=== PATIENT | female | born 1990 | race Hispanic/Latino ===

== ENCOUNTER 2022-01-22 08:04 | Emergency (ER) | payer SELFPAY | END 2022-01-22 08:55 | disposition home or self-care (01) | LOC: ERS 08:04 | DX: G56.01 Carpal tunnel syndrome, right upper limb (principal); R20.2 Paresthesia of skin | CPT/HCPCS: 99283 ==

== ENCOUNTER 2023-03-02 16:57 | Inpatient (IN) | payer SELFPAY ==
[~2023-03-02 16:57] MED LIST: Iopamidol-370 76% 500 ML MDV (1 ML CHARGE) ONE
[2023-03-02] MEDS ORDERED: Morphine 4 MG/ML VIAL ONE ×3 (17:58→20:16)
[2023-03-02 18:04] LABS: #Basophils 0.1 thou/uL (0.0-0.2); #Eosinphils 0.1 thou/uL (0.0-0.7); #Monocytes 0.8 thou/uL (0.11-0.59); #Neutrophils 5.9 thou/uL (1.40-6.50); %Basophils 0.8 % (0.0-1.0); %Lymphocytes 25.7 % (21.0-51.0); %Monocytes 8.4 % (0.0-10.0); %Neutrophils 63.9 % (42.0-75.0); Hemoglobin 12.8 g/dL (12.0-16.0); Mean Corpuscular HGB CONC 32.8 g/dL (32.0-36.0); Mean Corpuscular Hemoglobin 28.1 pg (27.0-31.0); Mean Corpuscular Volume 85.7 fl (78.0-98.0); Mean Platelet Volume 10.7 fL (7.4-10.4); Platelet Count 318 10x3/uL (130-400); RBC Distribution Width 12.2 % (11.5-14.5); Red Blood Cell (RBC) Count 4.55 mill/uL (4.20-5.40); White Blood Cell (WBC) Count 9.3 10x3/uL (4.8-10.8)
[2023-03-02 18:12] LABS: BHCG - Serum Negative (NEGATIVE); Pregs Control Background? CLEAR/WHITE (CLR/WHITE); Pregs Control Bar Appear? YES (CONTROL BAR)
[2023-03-02 18:51] LABS: ALT (SGPT) 33 U/L (8-55); AST (SGOT) 23 U/L (5-34); Alkaline Phosphatase 71 U/L (40-110); Anion Gap 12 mmol/L (10-20); BUN (Urea Nitrogen) 9 mg/dL (7.0-18.7); Bilirubin, Total 0.4 mg/dL (0.2-1.2); Carbon Dioxide 21 mmol/L (22-29); Chloride 106 mmol/L (98-107); Glucose 106 mg/dL (70-105); Potassium 3.9 mmol/L (3.5-5.1); Protein, Total 7.6 g/dL (6.0-8.3); Sodium 135 mmol/L (136-145)
[2023-03-02 19:12] LABS: Albumin 4.1 g/dL (3.5-5.0); Calc. Creatinine Clearance 0 mL/min (70-130); Estimated GFR 119; Globulin 3.5 g/dL (2.4-3.5)
[2023-03-02] MEDS ORDERED: methylPREDNISolone Sod Succ 1 GM in Sodium Chloride 0.9% 250 ML 250 ML IVPB SCH (19:45)
[2023-03-02] MEDS ORDERED: Pantoprazole 40 MG VIAL ONE (20:16)
[2023-03-02] MEDS ORDERED: Ketorolac Tromethamine 30 MG/ML VIAL ONE (20:16)
[2023-03-02] MEDS ORDERED: Acetaminophen 650 MG Suppository PR PRN (20:35)
[2023-03-02] MEDS ORDERED: Ondansetron PF 4 MG/2 ML Vial IVP PRN (20:35)
[2023-03-02] MEDS ORDERED: Ondansetron ODT 4 MG TAB PO PRN (20:35)
[2023-03-02 22:49] VITALS: BMI 42.7
[2023-03-03] MEDS: Sodium Chloride 0.9% 1,000 ML IV SCH ×2 (00:27→06:31)
[2023-03-03] MEDS: Morphine 4 MG/ML VIAL SLOW IVP PRN ×4 (00:28→17:14)
[2023-03-03 05:45] LABS: #Monocytes 0.1 thou/uL (0.11-0.59); #Neutrophils 5.7 thou/uL (1.40-6.50); %Basophils 0.3 % (0.0-1.0); %Monocytes 0.8 % (0.0-10.0); %Neutrophils 87.6 % (42.0-75.0); Hematocrit 39.5 % (36.0-47.0); Hemoglobin 12.9 g/dL (12.0-16.0); Mean Corpuscular HGB CONC 32.7 g/dL (32.0-36.0); Mean Corpuscular Hemoglobin 28.2 pg (27.0-31.0); Mean Corpuscular Volume 86.2 fl (78.0-98.0); Mean Platelet Volume 10.8 fL (7.4-10.4); Platelet Count 296 10x3/uL (130-400); RBC Distribution Width 12.2 % (11.5-14.5); Red Blood Cell (RBC) Count 4.58 mill/uL (4.20-5.40); White Blood Cell (WBC) Count 6.5 10x3/uL (4.8-10.8)
[2023-03-03 06:27] LABS: Hemoglobin A1c 5.3 % (4.0-6.0)
[2023-03-03 07:03] LABS: Anion Gap 11 mmol/L (10-20); BUN (Urea Nitrogen) 9 mg/dL (7.0-18.7); Calc. Creatinine Clearance 191 mL/min (70-130); Calcium 8.8 mg/dL (7.8-10.44); Carbon Dioxide 22 mmol/L (22-29); Chloride 104 mmol/L (98-107); Estimated GFR 119; Glucose 161 mg/dL (70-105); Potassium 4.2 mmol/L (3.5-5.1); Sodium 133 mmol/L (136-145)
[2023-03-03] MEDS: Pantoprazole 40 MG VIAL IVP SCH (09:48)
[2023-03-03] MEDS: methylPREDNISolone Sod Succ 1 GM in Sodium Chloride 0.9% 250 ML 250 ML IVPB SCH (14:03)
[2023-03-03] MEDS: Acetaminophen 325 MG TAB PO PRN ×2 (17:15→21:53)
[2023-03-04] MEDS: Acetaminophen 325 MG TAB PO PRN ×2 (07:07→18:09)
[2023-03-04] MEDS: Morphine 4 MG/ML VIAL SLOW IVP PRN ×3 (08:36→21:44)
[2023-03-04] MEDS: Pantoprazole 40 MG VIAL IVP SCH (08:37)
[2023-03-04] MEDS ORDERED: Lorazepam 2 MG/ML VIAL SLOW IVP SCH (09:45)
[2023-03-04] MEDS: methylPREDNISolone Sod Succ 1 GM in Sodium Chloride 0.9% 250 ML 250 ML IVPB SCH (12:57)
[2023-03-05] MEDS ORDERED: methylPREDNISolone Sod Succ 40 MG VIAL IVP SCH (09:00)
[2023-03-05] MEDS: methylPREDNISolone Sod Succ 1 GM in Sodium Chloride 0.9% 250 ML 250 ML IVPB SCH (09:21)
[2023-03-05] MEDS: Pantoprazole 40 MG VIAL IVP SCH (09:22)
[2023-03-05] MEDS: Acetaminophen 325 MG TAB PO PRN (09:22)
[2023-03-05] MEDS: Fioricet 325/50/40 mg Tablet PO PRN ×2 (13:13→22:04)
[2023-03-05] MEDS: Morphine 4 MG/ML VIAL SLOW IVP PRN (14:59)
[2023-03-06] MEDS ORDERED: Atropine Sulfate 1 mg/10 ml Syringe IVP SCH (05:00)
[2023-03-06 05:26] LABS: Anion Gap 12 mmol/L (10-20); BUN (Urea Nitrogen) 14 mg/dL (7.0-18.7); Calc. Creatinine Clearance 220 mL/min (70-130); Calcium 8.7 mg/dL (7.8-10.44); Carbon Dioxide 24 mmol/L (22-29); Chloride 105 mmol/L (98-107); Estimated GFR 123; Glucose 136 mg/dL (70-105); Magnesium 2.2 mg/dL (1.6-2.6); Potassium 3.6 mmol/L (3.5-5.1); Sodium 137 mmol/L (136-145)
[2023-03-06 05:37] LABS: Troponin I Less than 0.010 ng/mL (< 0.028)
[2023-03-06] MEDS: Pantoprazole 40 MG VIAL IVP SCH (09:20)
[2023-03-06] MEDS: methylPREDNISolone Sod Succ 1 GM in Sodium Chloride 0.9% 250 ML 250 ML IVPB SCH (10:27)
[2023-03-06 11:25] VITALS: BP 101/57; TEMP 97.9
== END 2023-03-06 12:15 | disposition home or self-care (01) | DRG 59 ==
LOC: ERS 16:57 → 2SE 20:21
PROVIDERS: ADMIT Student in an Organized Health Care Education/Training Program; ATTEND Internal Medicine
DX: G35 Multiple sclerosis (principal); Z68.41 Body mass index [BMI] 40.0-44.9, adult; F41.9 Anxiety disorder, unspecified; F32.A Depression, unspecified; F43.10 Post-traumatic stress disorder, unspecified; E66.01 Morbid (severe) obesity due to excess calories; G93.89 Other specified disorders of brain; Z90.49 Acquired absence of other specified parts of digestive tract; Z98.891 History of uterine scar from previous surgery; Z88.0 Allergy status to penicillin; Z79.899 Other long term (current) drug therapy
CPT/HCPCS: 36415; 70553; 72130; 72133; 72158; 80048; 80053; 83036; 83735; 84484; 84703; 85025; 93005; 93010; 96365; 96375; 96376; C9113; J1650; J1885; J2060; J2270; J2930; J7050; Q9967

== ENCOUNTER 2023-07-14 15:13 | Emergency (ER) | payer MEDICAID, SELFPAY ==
[2023-07-14] MEDS ORDERED: Acetaminophen 500 MG TAB ONE (18:16)
[2023-07-14] MEDS ORDERED: Ketorolac Tromethamine 30 MG (1 mL) VIAL ONE (18:16)
== END 2023-07-14 18:53 | disposition home or self-care (01) ==
LOC: ERS 15:13
DX: G35 Multiple sclerosis (principal); M54.50 Low back pain, unspecified; F17.290 Nicotine dependence, other tobacco product, uncomplicated
CPT/HCPCS: 96372; 99283; J1885

== ENCOUNTER 2023-11-22 20:26 | Inpatient (IN) | payer OTHER, SELFPAY ==
[2023-11-22] MEDS ORDERED: Ketorolac Tromethamine 30 MG (1 mL) VIAL ONE (22:04)
[2023-11-23 00:30] LABS: #Basophils Less than 0.03 10x3/uL (0.0-0.2); #Eosinphils Less than 0.03 10x3/uL (0.0-0.7); %Basophils 0.1 % (0.0-1.0); %Eosinophils 0.1 % (0.0-10.0); %Lymphocytes 19.6 % (21.0-51.0); %Monocytes 4.6 % (0.0-10.0); %Neutrophils 74.8 % (42.0-75.0); Hematocrit 40.4 % (36.0-47.0); Mean Corpuscular HGB CONC 32.2 g/dL (32.0-36.0); Mean Corpuscular Hemoglobin 27.4 pg (27.0-31.0); Mean Corpuscular Volume 85.1 fL (78.0-98.0); Mean Platelet Volume 11.4 fL (7.4-10.4); Platelet Count 330 10x3/uL (130-400); RBC Distribution Width 13.1 % (11.5-14.5); Red Blood Cell (RBC) Count 4.75 mill/uL (4.20-5.40)
[2023-11-23] MEDS ORDERED: Ondansetron PF 4 MG/2 ML Vial IVP PRN (00:32)
[2023-11-23 00:56] LABS: Globulin 3.8 g/dL (2.4-3.5)
[2023-11-23 01:00] LABS: ALT (SGPT) 13 U/L (8-55); AST (SGOT) 13 U/L (5-34); Albumin 3.4 g/dL (3.5-5.0); Alkaline Phosphatase 86 U/L (40-110); Anion Gap 14 mmol/L (10-20); BUN (Urea Nitrogen) 16 mg/dL (7.0-18.7); Bilirubin, Total 0.3 mg/dL (0.2-1.2); Calc. Creatinine Clearance 0 mL/min (70-130); Carbon Dioxide 24 mmol/L (22-29); Chloride 106 mmol/L (98-107); Estimated GFR 120; Glucose 102 mg/dL (70-105); Protein, Total 7.2 g/dL (6.0-8.3); Sodium 140 mmol/L (136-145)
[2023-11-23 01:02] LABS: BHCG - Serum Negative (NEGATIVE); Pregs Control Background? CLEAR/WHITE (CLR/WHITE); Pregs Control Bar Appear? YES (CONTROL BAR)
[2023-11-23 08:18] LABS: Anion Gap 13 mmol/L (10-20); BUN (Urea Nitrogen) 13 mg/dL (7.0-18.7); Calc. Creatinine Clearance 0 mL/min (70-130); Calcium 8.6 mg/dL (7.8-10.44); Carbon Dioxide 22 mmol/L (22-29); Chloride 104 mmol/L (98-107); Estimated GFR 121; Glucose 143 mg/dL (70-105); Potassium 3.8 mmol/L (3.5-5.1); Sodium 135 mmol/L (136-145)
[2023-11-23 08:29] LABS: #Basophils Less than 0.03 10x3/uL (0.0-0.2); #Eosinphils Less than 0.03 10x3/uL (0.0-0.7); %Lymphocytes 10.3 % (21.0-51.0); %Monocytes 0.4 % (0.0-10.0); %Neutrophils 88.7 % (42.0-75.0); Hemoglobin 11.8 g/dL (12.0-16.0); Mean Corpuscular HGB CONC 32.8 g/dL (32.0-36.0); Mean Corpuscular Hemoglobin 27.4 pg (27.0-31.0); Mean Corpuscular Volume 83.7 fL (78.0-98.0); Mean Platelet Volume 10.9 fL (7.4-10.4); Platelet Count 268 10x3/uL (130-400); RBC Distribution Width 12.9 % (11.5-14.5)
[2023-11-23] MEDS ORDERED: methylPREDNISolone Sod Succ/PF 125 MG/2 ML VIAL IVP SCH (09:00)
[2023-11-23] MEDS ORDERED: Magnevist 469MG/ML 20 ML VIAL ONE (09:42)
[2023-11-23] MEDS ORDERED: Dextrose 50% Abboject 50 ML SYRINGE SLOW IVP PRN (10:03)
[2023-11-23] MEDS ORDERED: Dextrose 5% in Water 1,000 ML IV PRN (10:03)
[2023-11-23] MEDS ORDERED: Glucagon 1 MG/ML KIT IM PRN (10:03)
[2023-11-23] MEDS ORDERED: Acetaminophen 325 MG TAB ONE (10:29)
[2023-11-23] MEDS ORDERED: Pantoprazole DR 40 MG TAB ONE (10:30)
[2023-11-23] MEDS ORDERED: Gabapentin 100 MG CAP ONE ×2 (10:30→17:37)
[2023-11-23] MEDS: Gabapentin 100 MG CAP PO SCH (10:35)
[2023-11-23] MEDS: Acetaminophen 325 MG TAB PO PRN (10:36)
[2023-11-23] MEDS: Pantoprazole DR 40 MG TAB PO SCH (10:36)
[2023-11-23] MEDS: methylPREDNISolone Sod Succ 1,000 MG in Sodium Chloride 0.9% 250 ML 250 ML IVPB SCH (10:42)
[2023-11-23] MEDS: Mirtazapine 15 MG TAB PO SCH (10:42)
[2023-11-23] MEDS ORDERED: Acetaminophen/Codeine 30-300mg Tablet ONE ×2 (15:26→17:37)
[2023-11-23] MEDS ORDERED: Enoxaparin 80 MG (0.8 mL) SYRINGE ONE (15:27)
[2023-11-23] MEDS: Acetaminophen/Codeine 30-300mg Tablet PO PRN (15:36)
[2023-11-23] MEDS: Enoxaparin 40 MG (0.4 mL) SYRINGE SC SCH (15:37)
[2023-11-23 18:05] VITALS: BMI 41.7
[2023-11-23] MEDS ORDERED: Morphine 2 MG/ML VIAL SLOW IVP PRN (18:15)
[2023-11-23] MEDS: methylPREDNISolone Sod Succ 1 GM in Sodium Chloride 0.9% 250 ML 250 ML IVPB SCH (22:04)
[2023-11-23] MEDS: HumaLOG 300 UNITS/3 ML VIAL SC PRN (22:26)
[2023-11-24 04:51] LABS: #Basophils Less than 0.03 10x3/uL (0.0-0.2); #Eosinphils Less than 0.03 10x3/uL (0.0-0.7); %Basophils 0.1 % (0.0-1.0); %Lymphocytes 8.4 % (21.0-51.0); %Monocytes 1.3 % (0.0-10.0); %Neutrophils 89.8 % (42.0-75.0); Hematocrit 36.6 % (36.0-47.0); Hemoglobin 12.1 g/dL (12.0-16.0); Mean Corpuscular HGB CONC 33.1 g/dL (32.0-36.0); Mean Corpuscular Hemoglobin 27.2 pg (27.0-31.0); Mean Corpuscular Volume 82.2 fL (78.0-98.0); Mean Platelet Volume 11.2 fL (7.4-10.4); Platelet Count 315 10x3/uL (130-400); RBC Distribution Width 12.7 % (11.5-14.5); Red Blood Cell (RBC) Count 4.45 mill/uL (4.20-5.40)
[2023-11-24 05:10] LABS: Globulin 3.1 g/dL (2.4-3.5)
[2023-11-24 05:14] LABS: ALT (SGPT) 12 U/L (8-55); AST (SGOT) 8 U/L (5-34); Albumin 2.9 g/dL (3.5-5.0); Alkaline Phosphatase 74 U/L (40-110); Anion Gap 13 mmol/L (10-20); BUN (Urea Nitrogen) 14 mg/dL (7.0-18.7); Bilirubin, Total 0.5 mg/dL (0.2-1.2); Calc. Creatinine Clearance 200 mL/min (70-130); Calcium 8.5 mg/dL (7.8-10.44); Carbon Dioxide 22 mmol/L (22-29); Chloride 106 mmol/L (98-107); Estimated GFR 120; Glucose 140 mg/dL (70-105); Magnesium 2.2 mg/dL (1.6-2.6); Potassium 3.9 mmol/L (3.5-5.1); Sodium 137 mmol/L (136-145)
[2023-11-24] MEDS: Pantoprazole DR 40 MG TAB PO SCH (09:11)
[2023-11-24] MEDS: Enoxaparin 40 MG (0.4 mL) SYRINGE SC SCH (09:11)
[2023-11-24] MEDS: LORazepam 2 MG/ML SYR.(CARPUJECT) SLOW IVP PRN (09:45)
[2023-11-26] MEDS ORDERED: Metoprolol Tartrate 5 MG (5 mL) VIAL IVP PRN (14:41)
[2023-11-28 04:30] VITALS: TEMP 98
[2023-11-28 08:13] VITALS: BP 114/74
== END 2023-11-28 11:47 | disposition home or self-care (01) | DRG 59 ==
LOC: ERS 20:26 → ERHOLD 11-23 00:43 → 2SE 11-23 00:54
PROVIDERS: ADMIT Internal Medicine; ATTEND Internal Medicine
DX: G35 Multiple sclerosis (principal); Z68.41 Body mass index [BMI] 40.0-44.9, adult; Z88.0 Allergy status to penicillin; Z90.49 Acquired absence of other specified parts of digestive tract; Z98.890 Other specified postprocedural states; F41.9 Anxiety disorder, unspecified; F32.A Depression, unspecified; F17.290 Nicotine dependence, other tobacco product, uncomplicated; Z79.899 Other long term (current) drug therapy; E66.9 Obesity, unspecified; H53.8 Other visual disturbances; R73.9 Hyperglycemia, unspecified
CPT/HCPCS: 36415; 36416; 70553; 80048; 80053; 83735; 84703; 85025; 96365; 96366; 96375; A9579; J1650; J1815; J1885; J2060; J2930; J7050

== ENCOUNTER 2024-03-06 17:54 | Observation (INO) | payer OTHER, SELFPAY ==
[2024-03-06 18:48] LABS: #Basophils 0.04 10x3/uL (0.0-0.2); %Basophils 0.4 % (0.0-1.0); %Eosinophils 1.4 % (0.0-10.0); %Monocytes 6.5 % (0.0-10.0); Hematocrit 37.9 % (36.0-47.0); Hemoglobin 12.2 g/dL (12.0-16.0); Mean Corpuscular HGB CONC 32.2 g/dL (32.0-36.0); Mean Corpuscular Hemoglobin 27.2 pg (27.0-31.0); Mean Corpuscular Volume 84.6 fL (78.0-98.0); Mean Platelet Volume 10.5 fL (7.4-10.4); Platelet Count 330 10x3/uL (130-400); RBC Distribution Width 12.7 % (11.5-14.5); Red Blood Cell (RBC) Count 4.48 mill/uL (4.20-5.40)
[2024-03-06 19:12] LABS: ALT (SGPT) 27 U/L (8-55); AST (SGOT) 19 U/L (5-34); Albumin 3.5 g/dL (3.5-5.0); Alkaline Phosphatase 72 U/L (40-110); Anion Gap 12 mmol/L (10-20); BUN (Urea Nitrogen) 11 mg/dL (7.0-18.7); Bilirubin, Total 0.4 mg/dL (0.2-1.2); CK (CPK) 20 U/L (29-168); Calc. Creatinine Clearance 0 mL/min (70-130); Calcium 9.4 mg/dL (7.8-10.44); Carbon Dioxide 25 mmol/L (22-29); Chloride 105 mmol/L (98-107); Estimated GFR 119; Globulin 3.4 g/dL (2.4-3.5); Glucose 143 mg/dL (70-105); Magnesium 1.9 mg/dL (1.6-2.6); Potassium 3.9 mmol/L (3.5-5.1); Protein, Total 6.9 g/dL (6.0-8.3); Sodium 138 mmol/L (136-145)
[2024-03-06] MEDS ORDERED: Morphine 4 MG/ML VIAL ONE (21:33)
[2024-03-06] MEDS ORDERED: Ondansetron PF 4 MG/2 ML Vial ONE (21:33)
[2024-03-06] MEDS ORDERED: methylPREDNISolone Sod Succ/PF 125 MG/2 ML VIAL ONE (21:41)
[2024-03-06] MEDS: methylPREDNISolone Sod Succ 1,000 MG in Sodium Chloride 0.9% 250 ML 250 ML IVPB SCH (22:00)
[2024-03-06] MEDS ORDERED: Morphine 2 MG/ML VIAL ONE (22:24)
[2024-03-06] MEDS ORDERED: diphenhydrAMINE 50 MG/ML VIAL ONE (23:29)
[2024-03-07] MEDS ORDERED: Metoclopramide HCl 10 MG (2 mL) VIAL ONE (00:03)
[2024-03-07] MEDS ORDERED: Acetaminophen 325 MG TAB PO PRN (00:26)
[2024-03-07] MEDS ORDERED: Ondansetron PF 4 MG/2 ML Vial IVP PRN (00:26)
[2024-03-07 01:09] LABS: BHCG - Serum Negative (NEGATIVE); Pregs Control Background? CLEAR/WHITE (CLR/WHITE); Pregs Control Bar Appear? YES (CONTROL BAR)
[2024-03-07 04:36] VITALS: BP 105/63; TEMP 98.1
[2024-03-07 04:37] VITALS: BMI 36.0
[2024-03-07] MEDS ORDERED: Pantoprazole DR 40 MG TAB PO SCH (09:00)
[2024-03-07] MEDS ORDERED: Gabapentin 100 MG CAP PO SCH (09:00)
== END 2024-03-07 04:47 | disposition short-term general hospital (02) ==
LOC: ERS 17:54 → ERHOLD 03-07 00:26
PROVIDERS: ADMIT Internal Medicine; ATTEND Internal Medicine
DX: G35 Multiple sclerosis (principal); Z98.890 Other specified postprocedural states; Z88.0 Allergy status to penicillin
CPT/HCPCS: 36415; 80053; 82550; 83605; 83735; 84703; 85025; 96361; 96372; 96374; 96375; G0378; J1200; J2272; J2405; J2765; J2919; J2930; J7050

== ENCOUNTER 2024-04-20 20:03 | Emergency (ER) | payer OTHER, SELFPAY ==
[2024-04-20 21:35] LABS: %Basophils 1.2 % (0.0-1.0); %Lymphocytes 37.7 % (21.0-51.0); %Monocytes 8.9 % (0.0-10.0); Hemoglobin 11.7 g/dL (12.0-16.0); Mean Corpuscular HGB CONC 31.6 g/dL (32.0-36.0); Mean Corpuscular Hemoglobin 26.5 pg (27.0-31.0); Mean Corpuscular Volume 83.9 fL (78.0-98.0); Mean Platelet Volume 10.9 fL (7.4-10.4); Platelet Count 318 10x3/uL (130-400); RBC Distribution Width 12.7 % (11.5-14.5); Red Blood Cell (RBC) Count 4.41 mill/uL (4.20-5.40)
[2024-04-20 21:40] LABS: Bacteria/HPF None Seen HPF (None Seen); Bilirubin Negative (Negative); Blood, Urine Negative (Negative); CAUTI Indications for Culture Pelvic or flank pain; Clarity Clear (Clear); Glucose, Urine (Dipstick) 30 mg/dL (Negative); Ketone, Urine Trace mg/dL (Negative); Leukocyte Negative Leu/uL (Negative); Nitrite Negative (Negative); Protein, Urine (Dipstick) 20 mg/dL (Neg-Trace); RBC/HPF None Seen HPF (0-3); Specific Gravity, Urine 1.033 (1.002-1.036); Squamous Epithelial 0-3 HPF (0-3); WBC/HPF 0-3 HPF (0-3); pH, Urine 6.5 (5.0-9.0)
[2024-04-20 21:42] LABS: Urine Culture Reflex No No
[2024-04-20 21:59] LABS: ALT (SGPT) 17 U/L (8-55); AST (SGOT) 15 U/L (5-34); Albumin 3.7 g/dL (3.5-5.0); Alkaline Phosphatase 78 U/L (40-110); Anion Gap 10 mmol/L (10-20); BUN (Urea Nitrogen) 11 mg/dL (7.0-18.7); Bilirubin, Total 0.3 mg/dL (0.2-1.2); CRP,High Sensitivity (Inhouse) 0.29 mg/dL (< or = 0.5); Calc. Creatinine Clearance 0 mL/min (70-130); Calcium 9.1 mg/dL (7.8-10.44); Carbon Dioxide 26 mmol/L (22-29); Chloride 106 mmol/L (98-107); Estimated GFR 108; Globulin 3.4 g/dL (2.4-3.5); Glucose 110 mg/dL (70-105); Potassium 3.4 mmol/L (3.5-5.1); Protein, Total 7.1 g/dL (6.0-8.3); Sodium 139 mmol/L (136-145)
[2024-04-20 22:00] LABS: BHCG - Serum Negative (NEGATIVE); Pregs Control Background? CLEAR/WHITE (CLR/WHITE); Pregs Control Bar Appear? YES (CONTROL BAR)
[2024-04-21] MEDS ORDERED: methylPREDNISolone Sod Succ 1 GM in Sodium Chloride 0.9% 250 ML 250 ML IVPB SCH (00:45)
== END 2024-04-21 02:12 | disposition home or self-care (01) ==
LOC: ERS 20:03
DX: G35 Multiple sclerosis (principal)
CPT/HCPCS: 36415; 80053; 81001; 84703; 85025; 86141; 96374; J2930; J7050

== ENCOUNTER 2024-06-03 19:08 | Emergency (ER) | payer OTHER, SELFPAY ==
[2024-06-03] MEDS ORDERED: Morphine 4 MG/ML VIAL ONE (19:55)
[2024-06-03 19:57] LABS: #Basophils 0.11 10x3/uL (0.0-0.2); %Basophils 1.1 % (0.0-1.0); %Eosinophils 2.1 % (0.0-10.0); %Lymphocytes 33.2 % (21.0-51.0); %Monocytes 6.8 % (0.0-10.0); %Neutrophils 56.4 % (42.0-75.0); Hematocrit 36.2 % (36.0-47.0); Hemoglobin 11.5 g/dL (12.0-16.0); Mean Corpuscular HGB CONC 31.8 g/dL (32.0-36.0); Mean Corpuscular Volume 81.9 fL (78.0-98.0); Mean Platelet Volume 10.5 fL (7.4-10.4); Platelet Count 341 10x3/uL (130-400); RBC Distribution Width 12.8 % (11.5-14.5); Red Blood Cell (RBC) Count 4.42 mill/uL (4.20-5.40)
[2024-06-03] MEDS ORDERED: methylPREDNISolone Sod Succ/PF 125 MG/2 ML VIAL ONE (19:58)
[2024-06-03] MEDS ORDERED: Ondansetron PF 4 MG/2 ML Vial ONE (19:58)
[2024-06-03 20:07] LABS: BHCG - Serum Negative (NEGATIVE); Pregs Control Background? CLEAR/WHITE (CLR/WHITE); Pregs Control Bar Appear? YES (CONTROL BAR)
[2024-06-03 20:14] LABS: ALT (SGPT) 18 U/L (8-55); AST (SGOT) 18 U/L (5-34); Albumin 3.4 g/dL (3.5-5.0); Alkaline Phosphatase 90 U/L (40-110); Anion Gap 14 mmol/L (10-20); BUN (Urea Nitrogen) 10 mg/dL (7.0-18.7); Bilirubin, Total 0.2 mg/dL (0.2-1.2); Calc. Creatinine Clearance 0 mL/min (70-130); Calcium 8.5 mg/dL (7.8-10.44); Carbon Dioxide 23 mmol/L (22-29); Chloride 107 mmol/L (98-107); Estimated GFR 119; Globulin 3.7 g/dL (2.4-3.5); Glucose 118 mg/dL (70-105); Magnesium 1.9 mg/dL (1.6-2.6); Potassium 3.9 mmol/L (3.5-5.1); Protein, Total 7.1 g/dL (6.0-8.3); Sodium 140 mmol/L (136-145)
[2024-06-03] MEDS ORDERED: Cyclobenzaprine 10 MG TAB ONE (21:21)
== END 2024-06-03 21:27 | disposition home or self-care (01) ==
LOC: ERS 19:08
DX: I34.2 Nonrheumatic mitral (valve) stenosis (principal); R29.700 NIHSS score 0
CPT/HCPCS: 36415; 70450; 80053; 83735; 84703; 85025; 93005; 96374; 96375; J2272; J2405; J2919

== ENCOUNTER 2024-08-25 20:01 | Emergency (ER) | payer OTHER, SELFPAY ==
[2024-08-25] MEDS ORDERED: Ondansetron PF 4 MG/2 ML Vial ONE (22:12)
[2024-08-25] MEDS ORDERED: Morphine 4 MG/ML VIAL ONE (22:12)
[2024-08-25 22:14] LABS: #Basophils 0.12 10x3/uL (0.0-0.2); %Basophils 1.2 % (0.0-1.0); %Eosinophils 1.5 % (0.0-10.0); %Lymphocytes 37.1 % (21.0-51.0); %Monocytes 7.1 % (0.0-10.0); %Neutrophils 52.6 % (42.0-75.0); Hematocrit 37.4 % (36.0-47.0); Hemoglobin 11.9 g/dL (12.0-16.0); Mean Corpuscular HGB CONC 31.8 g/dL (32.0-36.0); Mean Corpuscular Hemoglobin 24.8 pg (27.0-31.0); Mean Corpuscular Volume 77.9 fL (78.0-98.0); Mean Platelet Volume 10.1 fL (7.4-10.4); Platelet Count 352 10x3/uL (130-400); RBC Distribution Width 12.6 % (11.5-14.5)
[2024-08-25 22:17] LABS: Bacteria/HPF None Seen HPF (None Seen); Bilirubin Negative (Negative); Blood, Urine Negative (Negative); CAUTI Indications for Culture Pelvic or flank pain; Clarity Clear (Clear); Glucose, Urine (Dipstick) Normal (Negative); Ketone, Urine Negative (Negative); Leukocyte Negative Leu/uL (Negative); Nitrite Negative (Negative); Protein, Urine (Dipstick) Negative (Neg-Trace); RBC/HPF 0-3 HPF (0-3); Specific Gravity, Urine 1.011 (1.002-1.036); Squamous Epithelial 0-3 HPF (0-3); WBC/HPF 0-3 HPF (0-3); pH, Urine 6.5 (5.0-9.0)
[2024-08-25 22:19] LABS: Urine Culture Reflex No No
[2024-08-25] MEDS ORDERED: methylPREDNISolone Sod Succ/PF 125 MG/2 ML VIAL ONE (22:23)
[2024-08-25 22:31] LABS: BHCG - Serum Negative (NEGATIVE); Pregs Control Background? CLEAR/WHITE (CLR/WHITE); Pregs Control Bar Appear? YES (CONTROL BAR)
[2024-08-25 22:34] LABS: ALT (SGPT) 22 U/L (Less than 34); AST (SGOT) 29 U/L (11-34); Albumin 3.8 g/dL (3.1-4.5); Alkaline Phosphatase 88 U/L (40-110); Anion Gap 16 mmol/L (10-20); BUN (Urea Nitrogen) 9 mg/dL (7.0-18.7); Bilirubin, Total 0.2 mg/dL (0.3-1.2); Calc. Creatinine Clearance 0 mL/min (70-130); Calcium 9.2 mg/dL (7.8-10.44); Carbon Dioxide 23 mmol/L (22-29); Chloride 104 mmol/L (98-107); Estimated GFR 120; Glucose 109 mg/dL (70-105); Potassium 3.7 mmol/L (3.5-5.1); Protein, Total 7.8 g/dL (6.0-8.3); Sodium 139 mmol/L (136-145)
== END 2024-08-25 23:45 | disposition short-term general hospital (02) ==
LOC: ERS 20:01
DX: G35 Multiple sclerosis (principal)
CPT/HCPCS: 80053; 81001; 84703; 85025; 96374; 96375; J2270; J2405; J2919

== ENCOUNTER 2024-08-28 20:25 | Inpatient (IN) | payer OTHER ==
[2024-08-28] MEDS ORDERED: Ketorolac Tromethamine 30 MG (1 mL) VIAL ONE (22:06)
[2024-08-28] MEDS ORDERED: methylPREDNISolone Sod Succ/PF 125 MG/2 ML VIAL ONE ×2 (22:11→22:17)
[2024-08-28 22:28] LABS: #Basophils 0.15 10x3/uL (0.0-0.2); %Basophils 1.1 % (0.0-1.0); %Lymphocytes 33.9 % (21.0-51.0); %Monocytes 5.7 % (0.0-10.0); %Neutrophils 57.9 % (42.0-75.0); Hematocrit 36.4 % (36.0-47.0); Hemoglobin 11.5 g/dL (12.0-16.0); Mean Corpuscular HGB CONC 31.6 g/dL (32.0-36.0); Mean Corpuscular Hemoglobin 24.9 pg (27.0-31.0); Mean Corpuscular Volume 78.8 fL (78.0-98.0); Mean Platelet Volume 10.5 fL (7.4-10.4); Platelet Count 361 10x3/uL (130-400); RBC Distribution Width 12.8 % (11.5-14.5); Red Blood Cell (RBC) Count 4.62 mill/uL (4.20-5.40)
[2024-08-28 22:45] LABS: BHCG - Serum Negative (NEGATIVE); Pregs Control Background? CLEAR/WHITE (CLR/WHITE); Pregs Control Bar Appear? YES (CONTROL BAR)
[2024-08-28 22:50] LABS: ALT (SGPT) 16 U/L (Less than 34); AST (SGOT) 22 U/L (11-34); Albumin 3.5 g/dL (3.1-4.5); Alkaline Phosphatase 92 U/L (40-110); Anion Gap 13 mmol/L (10-20); BUN (Urea Nitrogen) 13 mg/dL (7.0-18.7); Bilirubin, Total 0.2 mg/dL (0.3-1.2); Calc. Creatinine Clearance 0 mL/min (70-130); Calcium 8.6 mg/dL (7.8-10.44); Carbon Dioxide 24 mmol/L (22-29); Chloride 104 mmol/L (98-107); Estimated GFR 123; Globulin 3.9 g/dL (2.4-3.5); Glucose 107 mg/dL (70-105); Potassium 3.7 mmol/L (3.5-5.1); Protein, Total 7.4 g/dL (6.0-8.3); Sodium 137 mmol/L (136-145)
[2024-08-29 01:17] VITALS: BMI 37.6
[2024-08-29] MEDS ORDERED: Ondansetron ODT 4 MG TAB PO PRN (01:24)
[2024-08-29] MEDS ORDERED: Ondansetron PF 4 MG/2 ML Vial IVP PRN (01:24)
[2024-08-29] MEDS: Pantoprazole 40 MG VIAL IVP SCH ×2 (03:02→09:40)
[2024-08-29 04:21] LABS: #Basophils 0.05 10x3/uL (0.0-0.2); #Eosinophils Less than 0.03 10x3/uL (0.0-0.7); %Basophils 0.6 % (0.0-1.0); %Lymphocytes 15.5 % (21.0-51.0); %Monocytes 1.2 % (0.0-10.0); %Neutrophils 82.1 % (42.0-75.0); Hematocrit 35.6 % (36.0-47.0); Hemoglobin 11.4 g/dL (12.0-16.0); Mean Corpuscular Hemoglobin 25.3 pg (27.0-31.0); Mean Corpuscular Volume 78.9 fL (78.0-98.0); Mean Platelet Volume 10.7 fL (7.4-10.4); Platelet Count 336 10x3/uL (130-400); RBC Distribution Width 12.8 % (11.5-14.5); Red Blood Cell (RBC) Count 4.51 mill/uL (4.20-5.40)
[2024-08-29 04:35] LABS: Anion Gap 12 mmol/L (10-20); BUN (Urea Nitrogen) 10 mg/dL (7.0-18.7); Calc. Creatinine Clearance 211 mL/min (70-130); Calcium 8.4 mg/dL (7.8-10.44); Carbon Dioxide 23 mmol/L (22-29); Chloride 105 mmol/L (98-107); Estimated GFR 121; Glucose 170 mg/dL (70-105); Potassium 4.8 mmol/L (3.5-5.1); Sodium 135 mmol/L (136-145)
[2024-08-29] MEDS ORDERED: methylPREDNISolone Sod Succ/PF 125 MG/2 ML VIAL IVP SCH (09:00)
[2024-08-29] MEDS: HYDROcodone/Acetaminophen 5/325 mg Tablet PO PRN (09:37)
[2024-08-29] MEDS: Gabapentin 300 MG CAP PO SCH (09:40)
[2024-08-29] MEDS ORDERED: Magnevist 469MG/ML 20 ML VIAL ONE (11:57)
[2024-08-29] MEDS: Lorazepam 2 MG/ML VIAL SLOW IVP PRN (15:41)
[2024-08-29] MEDS: methylPREDNISolone Sod Succ 1,000 MG in Sodium Chloride 0.9% 250 ML 250 ML IVPB SCH (20:42)
[2024-08-29] MEDS: Acetaminophen 325 MG TAB PO PRN (23:52)
[2024-08-30 04:05] LABS: #Basophils Less than 0.03 10x3/uL (0.0-0.2); #Eosinophils Less than 0.03 10x3/uL (0.0-0.7); %Basophils 0.1 % (0.0-1.0); %Lymphocytes 11.2 % (21.0-51.0); %Monocytes 0.8 % (0.0-10.0); Hemoglobin 10.4 g/dL (12.0-16.0); Mean Corpuscular HGB CONC 31.5 g/dL (32.0-36.0); Mean Corpuscular Hemoglobin 25.1 pg (27.0-31.0); Mean Corpuscular Volume 79.5 fL (78.0-98.0); Mean Platelet Volume 10.6 fL (7.4-10.4); Platelet Count 378 10x3/uL (130-400); RBC Distribution Width 12.5 % (11.5-14.5); Red Blood Cell (RBC) Count 4.15 mill/uL (4.20-5.40)
[2024-08-30 04:44] LABS: Anion Gap 11 mmol/L (10-20); BUN (Urea Nitrogen) 11 mg/dL (7.0-18.7); Calc. Creatinine Clearance 198 mL/min (70-130); Calcium 8.6 mg/dL (7.8-10.44); Carbon Dioxide 24 mmol/L (22-29); Chloride 106 mmol/L (98-107); Estimated GFR 119; Glucose 166 mg/dL (70-105); Potassium 4.1 mmol/L (3.5-5.1); Sodium 137 mmol/L (136-145)
[2024-08-30] MEDS ORDERED: Acetaminophen 500 MG TAB PO PRN (14:13)
[2024-08-30] MEDS: Morphine 4 MG/ML VIAL SLOW IVP PRN (14:52)
[2024-08-31] MEDS: Pantoprazole 40 MG GRANULES PACKET PO SCH (10:23)
[2024-08-31] MEDS: Ibuprofen 800 MG TAB PO PRN (10:23)
[2024-08-31 15:45] VITALS: BP 113/77; TEMP 98.5
== END 2024-08-31 15:46 | disposition home or self-care (01) | DRG 60 ==
LOC: ERS 20:25 → 2SE 23:00
PROVIDERS: ADMIT Internal Medicine; ATTEND Internal Medicine
DX: G35 Multiple sclerosis (principal); F32.A Depression, unspecified; K21.9 Gastro-esophageal reflux disease without esophagitis; R73.9 Hyperglycemia, unspecified; G62.9 Polyneuropathy, unspecified; F41.9 Anxiety disorder, unspecified; F43.10 Post-traumatic stress disorder, unspecified; Z88.0 Allergy status to penicillin; Z90.49 Acquired absence of other specified parts of digestive tract; Z79.899 Other long term (current) drug therapy
CPT/HCPCS: 36415; 70551; 72156; 80048; 80053; 81001; 84703; 85025; 96374; 96375; J1885; J2060; J2270; J2405; J2470; J2919; J2930; J7050

== ENCOUNTER 2024-09-07 19:55 | Inpatient (IN) | payer OTHER ==
[2024-09-07] MEDS ORDERED: methylPREDNISolone Sod Succ/PF 125 MG/2 ML VIAL ONE (21:57)
[2024-09-07] MEDS ORDERED: HYDROmorphone 0.5 MG/0.5 ML SYRINGE ONE (22:16)
[2024-09-07] MEDS ORDERED: Ondansetron PF 4 MG/2 ML Vial ONE (22:16)
[2024-09-07 22:40] LABS: #Basophils 0.09 10x3/uL (0.0-0.2); %Basophils 0.5 % (0.0-1.0); %Eosinophils 0.7 % (0.0-10.0); %Monocytes 7.7 % (0.0-10.0); %Neutrophils 66.2 % (42.0-75.0); Hemoglobin 10.9 g/dL (12.0-16.0); Mean Corpuscular HGB CONC 32.1 g/dL (32.0-36.0); Mean Corpuscular Hemoglobin 25.4 pg (27.0-31.0); Mean Corpuscular Volume 79.3 fL (78.0-98.0); Mean Platelet Volume 9.9 fL (7.4-10.4); Platelet Count 337 10x3/uL (130-400); RBC Distribution Width 13.2 % (11.5-14.5); Red Blood Cell (RBC) Count 4.29 mill/uL (4.20-5.40)
[2024-09-07 22:55] LABS: Anion Gap 12 mmol/L (10-20); BUN (Urea Nitrogen) 10 mg/dL (7.0-18.7); Calc. Creatinine Clearance 0 mL/min (70-130); Calcium 8.5 mg/dL (7.8-10.44); Carbon Dioxide 23 mmol/L (22-29); Chloride 106 mmol/L (98-107); Estimated GFR 122; Glucose 106 mg/dL (70-105); Sodium 137 mmol/L (136-145)
[2024-09-08 00:50] VITALS: BMI 43.3
[2024-09-08] MEDS ORDERED: Ondansetron PF 4 MG/2 ML Vial IVP PRN (01:09)
[2024-09-08] MEDS ORDERED: Acetaminophen 325 MG TAB PO PRN (01:09)
[2024-09-08] MEDS ORDERED: Ibuprofen 800 MG TAB PO PRN (01:09)
[2024-09-08] MEDS: methylPREDNISolone Sod Succ 1 GM in Sodium Chloride 0.9% 250 ML 250 ML IVPB SCH ×2 (01:10→18:20)
[2024-09-08] MEDS: Enoxaparin 40 MG (0.4 mL) SYRINGE SC SCH ×2 (01:57→20:19)
[2024-09-08] MEDS: HYDROcodone/Acetaminophen 10/325 mg Tablet PO PRN (02:01)
[2024-09-08 05:57] LABS: #Basophils 0.04 10x3/uL (0.0-0.2); #Eosinophils Less than 0.03 10x3/uL (0.0-0.7); %Basophils 0.3 % (0.0-1.0); %Eosinophils 0.1 % (0.0-10.0); %Lymphocytes 7.8 % (21.0-51.0); %Monocytes 0.7 % (0.0-10.0); Mean Corpuscular HGB CONC 31.4 g/dL (32.0-36.0); Mean Corpuscular Hemoglobin 24.8 pg (27.0-31.0); Mean Platelet Volume 10.3 fL (7.4-10.4); Platelet Count 315 10x3/uL (130-400); RBC Distribution Width 13.3 % (11.5-14.5); Red Blood Cell (RBC) Count 4.43 mill/uL (4.20-5.40)
[2024-09-08 06:22] LABS: Anion Gap 14 mmol/L (10-20); BUN (Urea Nitrogen) 11 mg/dL (7.0-18.7); Calc. Creatinine Clearance 225 mL/min (70-130); Calcium 8.2 mg/dL (7.8-10.44); Carbon Dioxide 17 mmol/L (22-29); Chloride 107 mmol/L (98-107); Estimated GFR 123; Glucose 191 mg/dL (70-105); Potassium 4.2 mmol/L (3.5-5.1); Sodium 134 mmol/L (136-145)
[2024-09-08] MEDS ORDERED: methylPREDNISolone Sod Succ/PF 125 MG/2 ML VIAL IVP SCH (09:00)
[2024-09-08] MEDS: Pantoprazole 40 MG DR.TAB PO SCH (09:29)
[2024-09-08] MEDS: Gabapentin 300 MG CAP PO SCH (09:29)
[2024-09-08] MEDS: FLU (Fluarix Triv) TS24-25(6MOS UP)/PF 45 MCG/0.5 ML Syringe IM ONE (09:30)
[2024-09-08] MEDS: Metoclopramide HCl 10 MG (2 mL) VIAL IVP SCH (11:48)
[2024-09-09 05:24] LABS: #Basophils Less than 0.03 10x3/uL (0.0-0.2); #Eosinophils Less than 0.03 10x3/uL (0.0-0.7); %Basophils 0.1 % (0.0-1.0); %Lymphocytes 6.5 % (21.0-51.0); %Monocytes 1.5 % (0.0-10.0); %Neutrophils 89.5 % (42.0-75.0); Hematocrit 32.1 % (36.0-47.0); Hemoglobin 10.2 g/dL (12.0-16.0); Mean Corpuscular HGB CONC 31.8 g/dL (32.0-36.0); Mean Corpuscular Hemoglobin 25.3 pg (27.0-31.0); Mean Corpuscular Volume 79.7 fL (78.0-98.0); Mean Platelet Volume 9.9 fL (7.4-10.4); Platelet Count 312 10x3/uL (130-400); RBC Distribution Width 13.3 % (11.5-14.5); Red Blood Cell (RBC) Count 4.03 mill/uL (4.20-5.40)
[2024-09-09 05:45] LABS: Anion Gap 13 mmol/L (10-20); BUN (Urea Nitrogen) 12 mg/dL (7.0-18.7); Calc. Creatinine Clearance 255 mL/min (70-130); Calcium 8.3 mg/dL (7.8-10.44); Carbon Dioxide 20 mmol/L (22-29); Chloride 108 mmol/L (98-107); Estimated GFR 127; Glucose 176 mg/dL (70-105); Potassium 3.5 mmol/L (3.5-5.1); Sodium 137 mmol/L (136-145)
[2024-09-09 09:34] VITALS: BP 114/74; TEMP 97.6
== END 2024-09-09 11:40 | disposition home or self-care (01) | DRG 59 ==
LOC: ERS 19:55 → SURG B 23:37
PROVIDERS: ADMIT Student in an Organized Health Care Education/Training Program; ATTEND Family Medicine
DX: G35 Multiple sclerosis (principal); Z68.41 Body mass index [BMI] 40.0-44.9, adult; F41.9 Anxiety disorder, unspecified; F32.A Depression, unspecified; F43.10 Post-traumatic stress disorder, unspecified; E66.9 Obesity, unspecified; Z98.891 History of uterine scar from previous surgery; Z90.49 Acquired absence of other specified parts of digestive tract; G62.9 Polyneuropathy, unspecified
CPT/HCPCS: 36415; 80048; 85025; 93005; 96365; 96375; J1171; J1650; J2405; J2765; J2919; J2930; J7050

== ENCOUNTER 2025-02-16 21:56 | Emergency (ER) | payer OTHER ==
[2025-02-17] MEDS ORDERED: Ketorolac Tromethamine 30 MG (1 mL) VIAL ONE (01:08)
[2025-02-17] MEDS ORDERED: methylPREDNISolone Sod Succ 1 GM in Sodium Chloride 0.9% 250 ML 250 ML IVPB SCH (01:15)
== END 2025-02-17 03:56 | disposition home or self-care (01) ==
LOC: ERS 21:56
DX: G35 Multiple sclerosis (principal); F17.290 Nicotine dependence, other tobacco product, uncomplicated
CPT/HCPCS: 96374; 96375; J1885; J2270; J2930; J7050

== ENCOUNTER 2025-02-22 17:43 | Inpatient (IN) | payer OTHER ==
[2025-02-22 18:34] LABS: Hematocrit 32.7 % (36.0-47.0); Hemoglobin 10.3 g/dL (12.0-16.0); Mean Corpuscular Hemoglobin 25.1 pg (27.0-31.0); Mean Corpuscular Volume 79.6 fL (78.0-98.0); Platelet Count 437 10x3/uL (130-400); Red Blood Cell (RBC) Count 4.11 mill/uL (4.20-5.40); White Blood Cell (WBC) Count 24.54 10x3/uL (4.8-10.8)
[2025-02-22 18:59] LABS: ALT (SGPT) 10 U/L (Less than 34); AST (SGOT) 11 U/L (11-34); Albumin 3.4 g/dL (3.1-4.5); Alkaline Phosphatase 85 U/L (40-110); Anion Gap 12 mmol/L (10-20); BUN (Urea Nitrogen) 15 mg/dL (7.0-18.7); Bilirubin, Total 0.2 mg/dL (0.3-1.2); Calc. Creatinine Clearance 0 mL/min (70-130); Calcium 8.3 mg/dL (7.8-10.44); Carbon Dioxide 26 mmol/L (22-29); Chloride 104 mmol/L (98-107); Globulin 3.1 g/dL (2.4-3.5); Glucose 102 mg/dL (70-105); Potassium 3.3 mmol/L (3.5-5.1); Sodium 139 mmol/L (136-145)
[2025-02-22 19:32] LABS: Platelet Adequacy Comment Platelets Increased; Polychromasia SLIGHT = 2-3 cells HPF (0-2); Smudge Cells 5.9 %; Toxic Granulation SLIGHT
[2025-02-22 22:07] VITALS: BMI 43.1
[2025-02-22] MEDS ORDERED: Ondansetron PF 4 MG/2 ML Vial IVP PRN (22:28)
[2025-02-22] MEDS ORDERED: Electrolyte Replacement Protocol 1 EACH FS PRN (22:45)
[2025-02-22] MEDS: Gabapentin 300 MG CAP PO SCH (23:59)
[2025-02-23] MEDS ORDERED: Ibuprofen 800 MG TAB PO PRN (04:12)
[2025-02-23] MEDS ORDERED: Dextrose 50% Abboject 50 ML SYRINGE SLOW IVP PRN (04:44)
[2025-02-23] MEDS ORDERED: Glucagon 1 MG/ML KIT IM PRN (04:44)
[2025-02-23] MEDS: Ketorolac Tromethamine 30 MG (1 mL) VIAL IVP SCH (05:23)
[2025-02-23] MEDS: Acetaminophen 325 MG TAB PO PRN (05:23)
[2025-02-23 05:26] LABS: Hematocrit 33.5 % (36.0-47.0); Hemoglobin 10.4 g/dL (12.0-16.0); Mean Corpuscular Hemoglobin 24.5 pg (27.0-31.0); Mean Corpuscular Volume 79.0 fL (78.0-98.0); Platelet Count 437 10x3/uL (130-400); Red Blood Cell (RBC) Count 4.24 mill/uL (4.20-5.40); White Blood Cell (WBC) Count 18.54 10x3/uL (4.8-10.8)
[2025-02-23 05:44] LABS: Anion Gap 13 mmol/L (10-20); BUN (Urea Nitrogen) 14 mg/dL (7.0-18.7); Calc. Creatinine Clearance 265 mL/min (70-130); Calcium 8.5 mg/dL (7.8-10.44); Carbon Dioxide 22 mmol/L (22-29); Chloride 103 mmol/L (98-107); Glucose 170 mg/dL (70-105); Magnesium 2.2 mg/dL (1.6-2.6); Potassium 4.2 mmol/L (3.5-5.1); Sodium 134 mmol/L (136-145)
[2025-02-23 05:54] LABS: Platelet Adequacy Comment Platelets Normal; Polychromasia SLIGHT = 2-3 cells HPF (0-2); Smudge Cells 3.0 %
[2025-02-23] MEDS: Pantoprazole 40 MG DR.TAB PO SCH (07:58)
[2025-02-23] MEDS: Gabapentin 300 MG CAP PO SCH (07:58)
[2025-02-23] MEDS ORDERED: Gabapentin 300 MG CAP PO SCH ×2 (09:00)
[2025-02-23] MEDS: Ibuprofen 800 MG TAB PO SCH (10:48)
[2025-02-23] MEDS: METHYLPREDNISOLONE SOD SUCC IVPB SCH (17:05)
[2025-02-23] MEDS: SODIUM CHLORIDE 0.9% IVPB SCH (17:05)
[2025-02-24] MEDS: Ibuprofen 800 MG TAB PO PRN (09:22)
[2025-02-24 13:21] VITALS: TEMP 98.2
[2025-02-24 19:00] VITALS: BP 120/79
[2025-02-24] MEDS ORDERED: Enoxaparin 40 MG (0.4 mL) SYRINGE SC SCH (21:00)
== END 2025-02-24 19:26 | disposition home or self-care (01) | DRG 59 ==
LOC: ERS 17:43 → SURG A 20:57 → OBSVTOIN 02-23 15:00
PROVIDERS: ADMIT Student in an Organized Health Care Education/Training Program; ATTEND Internal Medicine
DX: G35 Multiple sclerosis (principal); E87.1 Hypo-osmolality and hyponatremia; F41.9 Anxiety disorder, unspecified; F32.A Depression, unspecified; F43.10 Post-traumatic stress disorder, unspecified; F17.210 Nicotine dependence, cigarettes, uncomplicated; E87.6 Hypokalemia; E66.813 Obesity, class 3; M54.9 Dorsalgia, unspecified; F17.290 Nicotine dependence, other tobacco product, uncomplicated; Z88.0 Allergy status to penicillin; Z79.899 Other long term (current) drug therapy; Z98.890 Other specified postprocedural states; Z90.49 Acquired absence of other specified parts of digestive tract; Z98.891 History of uterine scar from previous surgery
CPT/HCPCS: 36415; 36416; 70553; 72156; 72157; 76376; 80048; 80053; 83735; 85025; 96365; 96366; 96375; 96376; G0378; J1815; J1885; J2060; J2270; J2919; J2930; J3010; J7050

== ENCOUNTER 2025-03-05 19:49 | Emergency (ER) | payer OTHER ==
[2025-03-05] MEDS ORDERED: Metoclopramide HCl 10 MG (2 mL) VIAL ONE (22:37)
[2025-03-05] MEDS ORDERED: diphenhydrAMINE 50 MG/ML VIAL ONE (22:37)
== END 2025-03-06 00:59 | disposition home or self-care (01) ==
LOC: ERS 19:49
DX: G43.909 Migraine, unspecified, not intractable, without status migrainosus (principal); F17.290 Nicotine dependence, other tobacco product, uncomplicated
CPT/HCPCS: 94760; 96374; 96375; J1200; J2765

== ENCOUNTER 2025-03-18 10:02 | Emergency (ER) | payer OTHER ==
[2025-03-18] MEDS ORDERED: Ketorolac Tromethamine 30 MG (1 mL) VIAL ONE (11:31)
[2025-03-18] MEDS ORDERED: diphenhydrAMINE 50 MG/ML VIAL ONE (11:32)
[2025-03-18] MEDS ORDERED: Metoclopramide HCl 10 MG (2 mL) VIAL ONE (11:32)
[2025-03-18 12:19] LABS: #Basophils 0.26 10x3/uL (0.0-0.2); #Eosinophils 0.19 10x3/uL (0.0-0.7); #Monocytes 0.78 10x3/uL (0.11-0.59); #Neutrophils 17.28 10x3/uL (1.40-6.50); %Basophils 1.3 % (0.0-1.0); %Eosinophils 1.0 % (0.0-10.0); %Lymphocytes 5.9 % (21.0-51.0); %Monocytes 3.9 % (0.0-10.0); %Neutrophils 86.3 % (42.0-75.0); Hematocrit 34.0 % (36.0-47.0); Hemoglobin 10.7 g/dL (12.0-16.0); Mean Corpuscular Hemoglobin 24.7 pg (27.0-31.0); Mean Corpuscular Volume 78.5 fL (78.0-98.0); Platelet Count 368 10x3/uL (130-400); Red Blood Cell (RBC) Count 4.33 mill/uL (4.20-5.40); White Blood Cell (WBC) Count 20.00 10x3/uL (4.8-10.8)
[2025-03-18 12:34] LABS: ALT (SGPT) 18 U/L (Less than 34); AST (SGOT) 23 U/L (11-34); Albumin 3.7 g/dL (3.1-4.5); Alkaline Phosphatase 68 U/L (40-110); Anion Gap 13 mmol/L (10-20); BUN (Urea Nitrogen) 8 mg/dL (7.0-18.7); Bilirubin, Total 0.4 mg/dL (0.3-1.2); Calc. Creatinine Clearance 0 mL/min (70-130); Calcium 8.9 mg/dL (7.8-10.44); Carbon Dioxide 22 mmol/L (22-29); Chloride 103 mmol/L (98-107); Globulin 3.8 g/dL (2.4-3.5); Glucose 99 mg/dL (70-105); Potassium 4.0 mmol/L (3.5-5.1); Sodium 134 mmol/L (136-145)
== END 2025-03-18 13:00 | disposition left against medical advice (07) ==
LOC: ERS 10:02
DX: R51.9 Headache, unspecified (principal); G35 Multiple sclerosis
CPT/HCPCS: 71045; 80053; 85025; 87428; 94760; 96374; 96375; J1200; J1885; J2765; J2919

== ENCOUNTER 2025-03-30 20:35 | Emergency (ER) | payer OTHER ==
[2025-03-30 21:08] LABS: #Basophils 0.34 10x3/uL (0.0-0.2); #Eosinophils 0.24 10x3/uL (0.0-0.7); #Monocytes 1.01 10x3/uL (0.11-0.59); #Neutrophils 11.14 10x3/uL (1.40-6.50); %Basophils 2.0 % (0.0-1.0); %Eosinophils 1.4 % (0.0-10.0); %Lymphocytes 22.2 % (21.0-51.0); %Monocytes 6.0 % (0.0-10.0); %Neutrophils 66.3 % (42.0-75.0); Hematocrit 32.1 % (36.0-47.0); Hemoglobin 9.8 g/dL (12.0-16.0); Mean Corpuscular Hemoglobin 23.9 pg (27.0-31.0); Mean Corpuscular Volume 78.3 fL (78.0-98.0); Platelet Count 418 10x3/uL (130-400); Red Blood Cell (RBC) Count 4.10 mill/uL (4.20-5.40); White Blood Cell (WBC) Count 16.82 10x3/uL (4.8-10.8)
[2025-03-30] MEDS ORDERED: Metoclopramide HCl 10 MG (2 mL) VIAL ONE (21:25)
[2025-03-30] MEDS ORDERED: diphenhydrAMINE 50 MG/ML VIAL ONE (21:25)
[2025-03-30] MEDS ORDERED: Ketorolac Tromethamine 30 MG (1 mL) VIAL ONE (21:25)
[2025-03-30 21:30] LABS: ALT (SGPT) 12 U/L (Less than 34); AST (SGOT) 16 U/L (11-34); Albumin 3.7 g/dL (3.1-4.5); Alkaline Phosphatase 62 U/L (40-110); Anion Gap 11 mmol/L (10-20); BUN (Urea Nitrogen) 10 mg/dL (7.0-18.7); Bilirubin, Total 0.3 mg/dL (0.3-1.2); Calc. Creatinine Clearance 0 mL/min (70-130); Calcium 9.0 mg/dL (7.8-10.44); Carbon Dioxide 24 mmol/L (22-29); Chloride 105 mmol/L (98-107); Globulin 3.1 g/dL (2.4-3.5); Glucose 130 mg/dL (70-105); Potassium 3.4 mmol/L (3.5-5.1); Sodium 137 mmol/L (136-145)
[2025-03-30] MEDS ORDERED: methylPREDNISolone Sod Succ 1 GM in Sodium Chloride 0.9% 250 ML 250 ML IVPB SCH (21:30)
[2025-03-30] MEDS ORDERED: Ondansetron PF 4 MG/2 ML Vial ONE (23:04)
== END 2025-03-30 23:51 | disposition home or self-care (01) ==
LOC: ERS 20:35
DX: G35 Multiple sclerosis (principal)
CPT/HCPCS: 36415; 80053; 85025; 96365; 96367; 96375; J1200; J1885; J2270; J2405; J2765; J2930; J3010; J7050

== ENCOUNTER 2025-04-02 20:09 | Emergency (ER) | payer OTHER ==
[2025-04-03] MEDS ORDERED: methylPREDNISolone Sod Succ 1 GM in Sodium Chloride 0.9% 250 ML 250 ML IVPB SCH (00:30)
[2025-04-03 00:42] LABS: #Basophils 0.26 10x3/uL (0.0-0.2); #Eosinophils 0.24 10x3/uL (0.0-0.7); #Monocytes 1.18 10x3/uL (0.11-0.59); #Neutrophils 10.81 10x3/uL (1.40-6.50); %Basophils 1.4 % (0.0-1.0); %Eosinophils 1.3 % (0.0-10.0); %Lymphocytes 27.9 % (21.0-51.0); %Monocytes 6.5 % (0.0-10.0); %Neutrophils 59.5 % (42.0-75.0); Hematocrit 30.3 % (36.0-47.0); Hemoglobin 9.3 g/dL (12.0-16.0); Mean Corpuscular Hemoglobin 23.9 pg (27.0-31.0); Mean Corpuscular Volume 77.9 fL (78.0-98.0); Platelet Count 374 10x3/uL (130-400); Red Blood Cell (RBC) Count 3.89 mill/uL (4.20-5.40); White Blood Cell (WBC) Count 18.18 10x3/uL (4.8-10.8)
[2025-04-03] MEDS ORDERED: Acetaminophen 500 MG TAB ONE (01:26)
[2025-04-03 01:43] LABS: Chloride 105 mmol/L (98-107); Potassium 3.9 mmol/L (3.5-5.1); Sodium 138 mmol/L (136-145)
[2025-04-03 01:44] LABS: Albumin 3.2 g/dL (3.1-4.5); Calcium 8.3 mg/dL (7.8-10.44); Glucose 121 mg/dL (70-105)
[2025-04-03 01:45] LABS: Globulin 3.0 g/dL (2.4-3.5)
[2025-04-03 01:46] LABS: Anion Gap 17 mmol/L (10-20); Carbon Dioxide 20 mmol/L (22-29)
[2025-04-03 01:47] LABS: Alkaline Phosphatase 83 U/L (40-110); Bilirubin, Total 0.2 mg/dL (0.3-1.2)
[2025-04-03 01:48] LABS: Calc. Creatinine Clearance 0 mL/min (70-130)
[2025-04-03 01:49] LABS: BUN (Urea Nitrogen) 12 mg/dL (7.0-18.7)
[2025-04-03 01:50] LABS: ALT (SGPT) 11 U/L (Less than 34)
[2025-04-03 01:51] LABS: AST (SGOT) 19 U/L (11-34)
== END 2025-04-03 02:28 | disposition home or self-care (01) ==
LOC: ERS 20:09
DX: G35 Multiple sclerosis (principal)
CPT/HCPCS: 80053; 85025; 96365; J2930; J7050

== ENCOUNTER 2025-04-14 21:06 | Emergency (ER) | payer OTHER ==
[2025-04-14] MEDS ORDERED: Ketorolac Tromethamine 30 MG (1 mL) VIAL ONE (21:40)
[2025-04-14] MEDS ORDERED: diphenhydrAMINE 50 MG/ML VIAL ONE (21:41)
[2025-04-14] MEDS ORDERED: Metoclopramide HCl 10 MG (2 mL) VIAL ONE (21:41)
[2025-04-14 21:59] LABS: #Basophils 0.35 10x3/uL (0.0-0.2); #Eosinophils 0.14 10x3/uL (0.0-0.7); #Monocytes 0.81 10x3/uL (0.11-0.59); #Neutrophils 13.51 10x3/uL (1.40-6.50); %Basophils 1.9 % (0.0-1.0); %Eosinophils 0.7 % (0.0-10.0); %Lymphocytes 18.6 % (21.0-51.0); %Monocytes 4.3 % (0.0-10.0); %Neutrophils 71.7 % (42.0-75.0); Hematocrit 32.5 % (36.0-47.0); Hemoglobin 9.9 g/dL (12.0-16.0); Mean Corpuscular Hemoglobin 24.0 pg (27.0-31.0); Mean Corpuscular Volume 78.7 fL (78.0-98.0); Platelet Count 359 10x3/uL (130-400); Red Blood Cell (RBC) Count 4.13 mill/uL (4.20-5.40); White Blood Cell (WBC) Count 18.85 10x3/uL (4.8-10.8)
[2025-04-14] MEDS ORDERED: methylPREDNISolone Sod Succ 1 GM in Sodium Chloride 0.9% 250 ML 250 ML IVPB SCH (22:00)
[2025-04-14 22:15] LABS: ALT (SGPT) 13 U/L (Less than 34); AST (SGOT) 19 U/L (11-34); Albumin 3.6 g/dL (3.1-4.5); Alkaline Phosphatase 57 U/L (40-110); Anion Gap 16 mmol/L (10-20); BUN (Urea Nitrogen) 7 mg/dL (7.0-18.7); Bilirubin, Total 0.4 mg/dL (0.3-1.2); Calc. Creatinine Clearance 0 mL/min (70-130); Calcium 9.1 mg/dL (7.8-10.44); Carbon Dioxide 19 mmol/L (22-29); Chloride 106 mmol/L (98-107); Globulin 3.6 g/dL (2.4-3.5); Glucose 93 mg/dL (70-105); Potassium 3.4 mmol/L (3.5-5.1); Sodium 138 mmol/L (136-145)
== END 2025-04-14 23:30 | disposition home or self-care (01) ==
LOC: ERS 21:06
DX: G35 Multiple sclerosis (principal)
CPT/HCPCS: 80053; 85025; 96365; 96367; 96368; 96375; J1200; J1885; J2765; J2930; J7050

== ENCOUNTER 2025-04-22 19:15 | Emergency (ER) | payer OTHER ==
[2025-04-22] MEDS ORDERED: methylPREDNISolone Sod Succ 1 GM in Sodium Chloride 0.9% 250 ML 250 ML IVPB SCH (20:30)
[2025-04-22 20:37] LABS: ALT (SGPT) 23 U/L (Less than 34); AST (SGOT) 25 U/L (11-34); Albumin 4.1 g/dL (3.1-4.5); Alkaline Phosphatase 67 U/L (40-110); Anion Gap 14 mmol/L (10-20); BUN (Urea Nitrogen) 12 mg/dL (7.0-18.7); Bilirubin, Total 0.3 mg/dL (0.3-1.2); Calc. Creatinine Clearance 0 mL/min (70-130); Calcium 9.5 mg/dL (7.8-10.44); Carbon Dioxide 25 mmol/L (22-29); Chloride 103 mmol/L (98-107); Globulin 3.6 g/dL (2.4-3.5); Glucose 109 mg/dL (70-105); Potassium 3.4 mmol/L (3.5-5.1); Sodium 139 mmol/L (136-145)
[2025-04-22] MEDS ORDERED: Ketorolac Tromethamine 30 MG (1 mL) VIAL ONE (20:48)
[2025-04-22 20:55] LABS: Hematocrit 33.3 % (36.0-47.0); Hemoglobin 10.4 g/dL (12.0-16.0); Mean Corpuscular Hemoglobin 23.8 pg (27.0-31.0); Mean Corpuscular Volume 76.2 fL (78.0-98.0); Platelet Count 439 10x3/uL (130-400); Red Blood Cell (RBC) Count 4.37 mill/uL (4.20-5.40); White Blood Cell (WBC) Count 18.60 10x3/uL (4.8-10.8)
[2025-04-22 21:16] LABS: Platelet Adequacy Comment Platelets Normal; Polychromasia SLIGHT = 2-3 cells HPF (0-2); Smudge Cells 7.0 %
== END 2025-04-23 | disposition home or self-care (01) ==
LOC: ERS 19:15
DX: G35.D Multiple sclerosis, unspecified (principal)
CPT/HCPCS: 71046; 80053; 84484; 85025; 93005; 96365; 96375; J1885; J2930; J7050

== ENCOUNTER 2025-04-29 13:04 | Emergency (ER) | payer OTHER ==
[2025-04-29] MEDS ORDERED: Ketorolac Tromethamine 30 MG (1 mL) VIAL ONE (14:01)
[2025-04-29] MEDS ORDERED: diphenhydrAMINE 50 MG/ML VIAL ONE (14:01)
[2025-04-29] MEDS ORDERED: Metoclopramide HCl 10 MG (2 mL) VIAL ONE (14:01)
[2025-04-29] MEDS ORDERED: methylPREDNISolone Sod Succ 1 GM in Sodium Chloride 0.9% 250 ML 250 ML IVPB SCH (15:00)
== END 2025-04-29 16:24 | disposition home or self-care (01) ==
LOC: ERS 13:04
DX: G35.D Multiple sclerosis, unspecified (principal)
CPT/HCPCS: 96374; 96375; J1200; J1885; J2765; J2930; J7050

== ENCOUNTER 2025-05-29 19:31 | Emergency (ER) | payer OTHER ==
[2025-05-29 20:46] LABS: Hematocrit 37.6 % (36.0-47.0); Hemoglobin 11.6 g/dL (12.0-16.0); Mean Corpuscular Hemoglobin 25.4 pg (27.0-31.0); Mean Corpuscular Volume 82.5 fL (78.0-98.0); Platelet Count 366 10x3/uL (130-400); Red Blood Cell (RBC) Count 4.56 mill/uL (4.20-5.40); White Blood Cell (WBC) Count 18.62 10x3/uL (4.8-10.8)
[2025-05-29 20:56] LABS: BHCG - Serum Negative (NEGATIVE); Pregs Control Background? CLEAR/WHITE (CLR/WHITE); Pregs Control Bar Appear? YES (CONTROL BAR)
[2025-05-29 21:01] LABS: ALT (SGPT) 18 U/L (Less than 34); AST (SGOT) 18 U/L (11-34); Albumin 4.2 g/dL (3.1-4.5); Alkaline Phosphatase 61 U/L (40-110); Anion Gap 13 mmol/L (10-20); BUN (Urea Nitrogen) 13 mg/dL (7.0-18.7); Bilirubin, Total 0.4 mg/dL (0.3-1.2); Calc. Creatinine Clearance 0 mL/min (70-130); Calcium 9.6 mg/dL (7.8-10.44); Carbon Dioxide 24 mmol/L (22-29); Chloride 103 mmol/L (98-107); Globulin 3.2 g/dL (2.4-3.5); Glucose 93 mg/dL (70-105); Potassium 3.4 mmol/L (3.5-5.1); Sodium 137 mmol/L (136-145)
[2025-05-29] MEDS ORDERED: Ondansetron PF 4 MG/2 ML Vial ONE (21:18)
[2025-05-29 21:21] LABS: Platelet Adequacy Comment Platelets Normal; Polychromasia SLIGHT = 2-3 cells HPF (0-2)
== END 2025-05-29 22:22 | disposition home or self-care (01) ==
LOC: ERS 19:31
DX: R07.9 Chest pain, unspecified (principal); D72.829 Elevated white blood cell count, unspecified; Z55.6 Problems related to health literacy
CPT/HCPCS: 36415; 71045; 71275; 80053; 83880; 84484; 84703; 85025; 85379; 93005; 96374; 96375; J2270; J2405

== ENCOUNTER 2025-06-05 19:58 | Emergency (ER) | payer OTHER ==
[2025-06-05] MEDS ORDERED: Acetaminophen 500 MG TAB ONE (20:44)
[2025-06-05] MEDS ORDERED: Metoclopramide HCl 10 MG (2 mL) VIAL ONE (23:06)
[2025-06-05] MEDS ORDERED: diphenhydrAMINE 50 MG/ML VIAL ONE (23:06)
[2025-06-05] MEDS ORDERED: methylPREDNISolone Sod Succ 1 GM in Sodium Chloride 0.9% 250 ML 250 ML IVPB SCH (23:30)
[2025-06-05 23:54] LABS: Hematocrit 35.1 % (36.0-47.0); Hemoglobin 10.9 g/dL (12.0-16.0); Mean Corpuscular Hemoglobin 25.8 pg (27.0-31.0); Mean Corpuscular Volume 83.2 fL (78.0-98.0); Platelet Count 344 10x3/uL (130-400); Red Blood Cell (RBC) Count 4.22 mill/uL (4.20-5.40); White Blood Cell (WBC) Count 19.00 10x3/uL (4.8-10.8)
[2025-06-06 00:13] LABS: ALT (SGPT) 17 U/L (Less than 34); AST (SGOT) 21 U/L (11-34); Albumin 3.7 g/dL (3.1-4.5); Alkaline Phosphatase 61 U/L (40-110); Anion Gap 13 mmol/L (10-20); BUN (Urea Nitrogen) 13 mg/dL (7.0-18.7); Bilirubin, Total 0.3 mg/dL (0.3-1.2); Calc. Creatinine Clearance 0 mL/min (70-130); Calcium 9.0 mg/dL (7.8-10.44); Carbon Dioxide 24 mmol/L (22-29); Chloride 105 mmol/L (98-107); Globulin 2.9 g/dL (2.4-3.5); Glucose 94 mg/dL (70-105); Potassium 3.5 mmol/L (3.5-5.1); Sodium 138 mmol/L (136-145)
[2025-06-06 00:28] LABS: BHCG - Serum Negative (NEGATIVE); Pregs Control Background? CLEAR/WHITE (CLR/WHITE); Pregs Control Bar Appear? YES (CONTROL BAR)
[2025-06-06 00:44] LABS: Platelet Adequacy Comment Platelets Normal; RBC Morphology Within Normal Limits; Smudge Cells 3.0 %
== END 2025-06-06 03:10 | disposition home or self-care (01) ==
LOC: ERS 19:58
DX: I05.0 Rheumatic mitral stenosis (principal); H53.9 Unspecified visual disturbance
CPT/HCPCS: 80053; 84703; 85025; 96365; 96367; 96375; J1200; J2765; J2919; J2930; J7050

== ENCOUNTER 2025-06-09 20:26 | Emergency (ER) | payer OTHER | END 2025-06-09 23:25 | disposition left against medical advice (07) | LOC: ERS 20:26 | DX: Z53.21 Procedure and treatment not carried out due to patient leaving prior to being seen by health care provider (principal) | CPT/HCPCS: 93005 ==